=== PATIENT | female | born 1950 | race Two or more races ===

== ENCOUNTER 2021-12-26 19:30 | Inpatient (IN) | payer MEDICAID, OTHER ==
[~2021-12-26] VITALS: Ht 152.4 cm; Wt 86.5 kg
[2021-12-26 20:43] LABS: Basophils # (auto) 0.1 10 ^3/uL (0-0.2); Basophils % (auto) 0.6 % (0.0-2.0); Eosinophils # (auto) 0.6 10 ^3/uL (0-0.8); Eosinophils % (auto) 5.4 % (0.0-7.0); Hematocrit 40.1 % (36.0-46.0); Hemoglobin 13.3 g/dL (12.2-16.2); Lymphocytes # (auto) 2.1 10 ^3/uL (0.4-5.4); Lymphocytes % (auto) 18.9 % (10.0-50.0); Mean Corpuscular Hemoglobin 28.8 pg (28.0-32.0); Mean Corpuscular Hgb Conc. 33.2 g/dL (32.0-36.0); Mean Corpuscular Volume 86.7 fL (80.0-100.0); Monocytes # (auto) 0.7 10 ^3/uL (0-1.3); Monocytes % (auto) 6.7 % (0.0-12.0); Neutrophils # (auto) 7.4 10 ^3/uL (1.6-8.6); Neutrophils % (auto) 68.4 % (37.0-80.0); Nucleated Red Blood Cells % 0.1 %; Red Blood Cells 4.63 10^6/uL (4.0-5.20); Red Cell Distribution Width 14.5 % (11.8-14.3); White Blood Cell 10.9 10^3/uL (4.4-10.8)
[2021-12-26 21:04] LABS: Calcium 8.8 mg/dL (8.5-10.1); Potassium 4.3 mmol/L (3.5-5.1)
[2021-12-26 21:08] LABS: BUN/Creatinine Ratio 34.9
[2021-12-26 21:10] LABS: Bilirubin, Total 0.4 mg/dL (0.2-1.0); Total Protein 7.8 g/dL (6.4-8.2)
[2021-12-26 22:03] LABS: Urine Bacteria FEW /hpf (None Seen); Urine Blood Negative /uL (Negative); Urine Mucus FEW (None Seen); Urine Specific Gravity 1.015 (1.001-1.035); Urine WBC 24 /hpf (0 - 5)
[2021-12-26] MEDS ORDERED: IOHEXOL 350 MG/ML 100ML IJ ONE (23:06)
[2021-12-27] MEDS ORDERED: TEMAZEPAM 15 MG CAP PO PRN (01:00)
[2021-12-27] MEDS ORDERED: NITROGLYCERIN 0.4 MG SL TAB SL PRN (01:00)
[2021-12-27] MEDS ORDERED: MORPHINE SULFATE INJ 2 MG/ml SYRG IV PRN (01:00)
[2021-12-27] MEDS ORDERED: ONDANSETRON HCL 4 MG/2 ML VIAL IV PRN (01:00)
[2021-12-27] MEDS ORDERED: ACETAMINOPHEN 325 MG TAB PO PRN (01:00)
[2021-12-27 01:32] LABS: Cholesterol 203 mg/dL (< 200)
[2021-12-27 01:34] LABS: HDL Cholesterol 54 mg/dL (40-59); LDL Cholesterol 150 mg/dL (< 100); Triglycerides 90 mg/dL (< 150)
[2021-12-27] MEDS ORDERED: cefTRIAXone 1GM/50ML D5W 50 ML IV SCH (09:00)
[2021-12-27] MEDS ORDERED: PANTOPRAZOLE 40 MG TAB PO SCH (10:00)
[2021-12-27] MEDS ORDERED: ASPirin 81 mg TAB PO SCH (10:00)
[2021-12-27] MEDS ORDERED: ENOXAPARIN SOD 40 MG/0.4 ML SYRINGE SC SCH (10:00)
[2021-12-27] MEDS ORDERED: ATOR10TA PO (18:56)
[2021-12-27] MEDS ORDERED: CIPR500T4 PO (18:56)
[2021-12-27] MEDS ORDERED: PANT40TA2 PO (18:56)
[2021-12-27 20:01] VITALS: BP 130/78
[2021-12-27] MEDS ORDERED: ATORVASTATIN 20 MG TAB PO SCH (22:00)
== END 2021-12-27 21:51 | disposition home or self-care (01) | DRG 198 ==
LOC: ER 19:30 → TELE 22:22
PROVIDERS: ADMIT Nurse Practitioner; ATTEND Hospitalist
DX: I20.9 Angina pectoris, unspecified (principal); E78.00 Pure hypercholesterolemia, unspecified; N39.0 Urinary tract infection, site not specified; Z20.822 Contact with and (suspected) exposure to COVID-19
CPT/HCPCS: 36415; 71045; 80053; 80061; 81001; 84484; 85025; 93306; 96365; 96372; G0378; J0696